=== PATIENT | female | born 1960 | race Caucasian/White ===

== ENCOUNTER → 2021-06-20 | Outpatient (CLI) | payer BC ==
[~2021-06-20] MED LIST: Aspirin EC81 MG; CETI5; ERGO400; Flonase 0.05% N16 GM; METFORMIN HCL500 MG PO; Multiple Vitam1 EAC1; NAPR220; Pseudoephedrine30 MG PO; Simvastatin20 MG PO
== END | disposition home or self-care (01) ==
LOC: LAB 11:21 → LAB SHORT 11:21
DX: D23.39 Other benign neoplasm of skin of other parts of face (principal)
CPT/HCPCS: 88305

== ENCOUNTER 2022-08-13 11:01 | Day surgery (SDC) | payer BC ==
[~2022-08-13] VITALS: Ht 165.1 cm; Wt 101.8 kg
[~2022-08-13 11:01] MED LIST changes: +DOCU100 PO; +GLIP10 PO; +HYDROCORTISONE-28 GM TOP; +METF500 PO; +Prinivil10 MG PO
[2022-08-13] MEDS ORDERED: ZYRTEC10 M2 (11:35)
[2022-08-13] MEDS ORDERED: ATOR40TA (11:35)
[2022-08-13 13:54] VITALS: BP 123/68
== END 2022-08-13 13:56 | disposition home or self-care (01) ==
LOC: ORSCSDS 11:01
PROVIDERS: Internal Medicine Gastroenterology
PROC: 0DBP8ZX Excision of Rectum, Via Natural or Artificial Opening Endoscopic, Diagnostic (ICD-10-PCS; principal; 2022-08-13 14:15)
DX: K62.5 Hemorrhage of anus and rectum (principal); K59.00 Constipation, unspecified; K62.1 Rectal polyp; K64.4 Residual hemorrhoidal skin tags; E11.9 Type 2 diabetes mellitus without complications; Z79.84 Long term (current) use of oral hypoglycemic drugs; Z79.899 Other long term (current) drug therapy
CPT/HCPCS: 82947; 88305; J0330; J0461; J2001; J2405; J2704; J7120; Q9968